=== PATIENT | female | born 1945 | race Caucasian/White ===

== ENCOUNTER → 2018-04-26 | Outpatient (CLI) | payer MEDICARE, BC ==
--- NOTE | 2018-04-26 09:54 | PCVCIMAG ---
APPROVED REPORT Study performed: 04/26/2018 07:57:23 EXAM: Comprehensive 2D, Doppler, and color-flow Echocardiogram Patient Location: Echo lab Status: routine BSA: 1.83 HR: 56 bpmBP: 140/86 mmHg Rhythm: Bradycardia Other Information Study Quality: Adequate Indications Diabetes Dyspnea Fatigue Chest Pain Hypertension/HDD 2D Dimensions IVSd: 13.01 (7-11mm) LVDd: 39.39 mm PWd: 11.93 (7-11mm) LVDs: 27.74 (25-40mm) Left Atrium: 38.05 (27-40mm) Aortic Root: 31.13 mm LV Single Plane 4CH: 62.30 % LV Single Plane 2CH: 62.89 % Biplane EF: 61.4 % Volumes Left Atrial Volume (Systole) Single Plane 4CH: 71.93 mLSingle Plane 2CH: 64.33 mL LA ESV Index: 42.00 mL/m2 Aortic Valve AoV Peak Hola.: 1.21 m/s AO Peak Gr.: 5.85 mmHgLVOT Max P.89 mmHg LVOT Max V: 0.85 m/s Mitral Valve E/A Ratio: 1.6 MV Decel. Time: 268.22 ms MV E Max Hola.: 0.82 m/s MV A Hola.: 0.51 m/s IVRT: 86.51 ms Pulmonary Valve PV Peak Hola.: 0.90 m/sPV Peak Gr.: 3.22 mmHg Pulmonary Vein P Vein S: 0.31 m/sP Vein A: 0.30 m/s P Vein D: 0.62 m/sP Vein A Dur.: 134.9 msec P Vein S/D Ratio: 0.50 Tricuspid Valve TR Peak Hola.: 2.89 m/s TR Peak Gr.: 33.46 mmHg Left Ventricle The left ventricle is normal size. There is normal LV segmental wall motion. Mild concentric left ventricular hypertrophy. Left ventricular systolic function is normal. The left ventricular ejection fraction is within the normal range. LVEF is 60-65%. Grade II - pseudonormal filling dynamics. Right Ventricle The right ventricle is normal size. The right ventricular systolic function is normal. Atria Left atrium is moderately dilated. The right atrium size is normal. Aortic Valve The aortic valve is normal in structure. No aortic regurgitation is present. There is no aortic valvular stenosis. Mitral Valve Trace anterior mitral valve prolapse with mildly thickened leaflet appearance. Moderate mitral regurgitation. No evidence of mitral valve stenosis. Tricuspid Valve The tricuspid valve is normal in structure. Mild to moderate tricuspid regurgitation with PAP of 40 mmHg. Pulmonic Valve The pulmonary valve is normal in structure. Trace pulmonic regurgitation. Great Vessels The aortic root is normal in size. IVC is normal in size and collapses >50% with inspiration. Pericardium There is no pericardial effusion. There is no pleural effusion. <Conclusion> The left ventricle is normal size. LVEF is 60-65%. Left atrium is moderately dilated. The aortic valve is normal in structure. Trace anterior mitral valve prolapse with mildly thickened leaflet appearance. Moderate mitral regurgitation. The tricuspid valve is normal in structure. Mild to moderate tricuspid regurgitation with PAP of 40 mmHg. The pulmonary valve is normal in structure. Trace pulmonic regurgitation. There is no pericardial effusion.
== END | disposition home or self-care (01) ==
LOC: PCVCIMAG 09:05
PROVIDERS: ATTEND Family Medicine
DX: I08.1 Rheumatic disorders of both mitral and tricuspid valves (principal); R06.09 Other forms of dyspnea; R53.83 Other fatigue
CPT/HCPCS: 93306